=== PATIENT | male | born 1995 | race Native Hawaiian/Other Pacific Islander ===

== ENCOUNTER 2017-11-02 21:52 | Outpatient (CLI) | payer OTHER | END 2017-11-02 22:00 | disposition short-term general hospital (02) | LOC: AMB 21:52 | DX: S11.85XA Open bite of other specified part of neck, initial encounter (principal); S11.81XA Laceration without foreign body of other specified part of neck, initial encounter; W54.0XXA Bitten by dog, initial encounter; Y92.89 Other specified places as the place of occurrence of the external cause | CPT/HCPCS: A0425; A0429 ==

== ENCOUNTER 2017-11-02 22:11 | Emergency (ER) | payer OTHER ==
[~2017-11-02] VITALS: Ht 180.3 cm; Wt 65.8 kg
[2017-11-02 22:10] VITALS: BP 129/65; TEMP 97.6
== END 2017-11-02 22:38 | disposition home or self-care (01) ==
LOC: ED 22:11
DX: S11.95XA Open bite of unspecified part of neck, initial encounter (principal); W54.0XXA Bitten by dog, initial encounter; Y92.098 Other place in other non-institutional residence as the place of occurrence of the external cause
CPT/HCPCS: 99282

== ENCOUNTER 2017-11-02 22:43 | Emergency (ER) | payer OTHER ==
[~2017-11-02] VITALS: Ht 180.3 cm; Wt 65.8 kg
[2017-11-02 23:04] LABS: PLATELET COUNT 270 K/uL (142-355)
[2017-11-03 00:55] VITALS: BP 115/52; TEMP 97.7
== END 2017-11-03 01:00 | disposition home or self-care (01) ==
LOC: ED 22:43
DX: S11.95XA Open bite of unspecified part of neck, initial encounter (principal); S01.81XA Laceration without foreign body of other part of head, initial encounter; T79.7XXA Traumatic subcutaneous emphysema, initial encounter; F19.10 Other psychoactive substance abuse, uncomplicated
CPT/HCPCS: 36415; 80307; 81000; 85027; 96365; 99284; G0479; J0696; Q9963

== ENCOUNTER 2020-01-24 17:38 | Outpatient (CLI) | payer OTHER | END 2020-01-24 17:49 | disposition short-term general hospital (02) | LOC: AMB 17:38 | DX: S30.810A Abrasion of lower back and pelvis, initial encounter (principal); M79.601 Pain in right arm; V49.3XXA Car occupant (driver) (passenger) injured in unspecified nontraffic accident, initial encounter; Y92.89 Other specified places as the place of occurrence of the external cause | CPT/HCPCS: A0425; A0427 ==

== ENCOUNTER 2020-01-24 17:50 | Emergency (ER) | payer OTHER ==
[~2020-01-24] VITALS: Ht 185.4 cm; Wt 68.0 kg
[2020-01-24 23:38] LABS: PLATELET COUNT 356 K/uL (142-355)
[2020-01-25 01:36] VITALS: BP 122/71; TEMP 98.4
== END 2020-01-25 01:45 | disposition home or self-care (01) ==
LOC: ED 17:50
PROVIDERS: Emergency Medicine
DX: S09.90XA Unspecified injury of head, initial encounter (principal); V49.3XXA Car occupant (driver) (passenger) injured in unspecified nontraffic accident, initial encounter; Y92.410 Unspecified street and highway as the place of occurrence of the external cause
CPT/HCPCS: 80053; 85027; 96372; 96374; 99284; J1885; Q9963